=== PATIENT | female | born 1980 | race Caucasian/White ===

== ENCOUNTER → 2017-10-16 | Outpatient (CLI) | payer MEDICAID | END | disposition home or self-care (01) | LOC: U/S 09:57 | DX: O26.849 Uterine size-date discrepancy, unspecified trimester (principal); Z3A.00 Weeks of gestation of pregnancy not specified | CPT/HCPCS: 76801 ==

== ENCOUNTER 2018-05-12 11:15 | Inpatient (IN) | payer OTHER ==
[2018-05-12] MEDS ORDERED: METHYLERGONOVINE 0.2 MG INJ IM ×2 (12:00→23:00)
[2018-05-12] MEDS ORDERED: CEFAZOLIN 2 GM/50 ML (PMX) 50 ML IVPB (12:00)
[2018-05-12] MEDS ORDERED: MISOPROSTOL 200 MCG TAB PR ×2 (12:00→23:00)
[2018-05-12] MEDS ORDERED: OXYTOCIN 30 UNITS/LR 500 ML IV ×3 (12:00→23:00)
[2018-05-12] MEDS ORDERED: CARBOPROST 250 MCG INJ IM ×2 (12:00→23:00)
[2018-05-12 12:09] LABS: ADD MAN DIFF? NO
[2018-05-12 12:18] LABS: WHITE BLOOD COUNT 7.8 10^3/ul (4.8-10.8)
[2018-05-12 12:18] LABS: BASOPHILS % 0.1 % (0.0-2.0); EOSINOPHILS # 0.1 10^3/ul (0.0-0.5); EOSINOPHILS % 0.6 % (0.0-7.0); HEMATOCRIT 34.9 % (37.0-47.0); HEMOGLOBIN 11.7 g/dl (12.0-16.0); LYMPHOCYTES # 1.4 10^3/ul (0.8-2.9); LYMPHOCYTES % 17.2 % (15.0-51.0); MEAN CORPUSCULAR HGB CONC 33.5 g/dl (32.0-37.0); MEAN CORPUSCULAR VOLUME 92.3 fl (82.0-101.0); MEAN PLATELET VOLUME 11.1 fl (7.4-10.4); MONOCYTE # 0.6 10^3/ul (0.3-0.9); MONOCYTES % 7.1 % (0.0-11.0); NEUTROPHIL # 5.8 10^3/ul (1.6-7.5); NEUTROPHILS % 74.4 % (39.0-77.0); PLATELET COUNT 205 10^3/UL (140-415); RED BLOOD COUNT 3.78 10^6/ul (4.20-5.40); RED CELL DISTRIBUTION WIDTH 14.3 % (11.5-14.5)
[2018-05-12 12:39] LABS: INR 0.97
[2018-05-12 12:40] LABS: PARTIAL THROMBOPLASTIN TIME 26.9 Sec (23.0-35.0)
[2018-05-12 13:09] LABS: HEPATITIS B SURFACE ANTIGEN NEGATIVE (NEGATIVE)
[2018-05-12] MEDS ORDERED: ONDANSETRON 4 MG INJ IV ×2 (14:30)
[2018-05-12] MEDS ORDERED: NALOXONE (0.4 MG/ML) INJ IV (14:30)
[2018-05-12] MEDS ORDERED: HYDROmorphONE 0.5 MG/0.5 ML SYG IV ×2 (14:30)
[2018-05-12] MEDS ORDERED: ZOLPIDEM 5 MG TAB PO (14:30)
[2018-05-12] MEDS ORDERED: KETOROLAC 30 MG INJ IV (14:30)
[2018-05-12] MEDS ORDERED: DIPHENHYDRAMINE 50 MG INJ IV ×2 (14:30)
[2018-05-12] MEDS ORDERED: FENTAnyl 50 MCG/ML VIAL IV ×2 (14:30)
[2018-05-12] MEDS ORDERED: HYDROmorphONE 1 MG/5 ML IV SYRINGE IV ×3 (14:30)
[2018-05-12] MEDS: METOCLOPRAMIDE 10 MG INJ IV (15:26)
[2018-05-12] MEDS: FAMOTIDINE 20 MG INJ IV (15:26)
[2018-05-12] MEDS: LACTATED RINGER'S 1,000 ML IV ×2 (15:26→23:30)
[2018-05-12] MEDS: ONDANSETRON 4 MG INJ IV (15:27)
[2018-05-12] MEDS ORDERED: morphine SULFATE/PF (10 MG/10 ML) INJ (16:29)
[2018-05-12] MEDS ORDERED: OXYTOCIN 10 UNIT INJ (16:31)
[2018-05-12] MEDS ORDERED: EPINEPHrine 1 MG INJ (16:32)
[2018-05-12 19:25] LABS: RAPID PLASMA REAGIN NONREACTIVE (NR)
[2018-05-12] MEDS: KETOROLAC 30 MG INJ IV (20:00)
[2018-05-12] MEDS: AZITHROMYCIN 500MG/NS (PMX) 250 ML IVPB (20:49)
[2018-05-12] MEDS ORDERED: NA PHOSPHATE/BIPHOS 133 ML ENEMA PR (23:00)
[2018-05-12] MEDS: IBUPROFEN 800 MG TAB PO (23:00)
[2018-05-12] MEDS ORDERED: HYDROCODONE/APAP (5/325) TAB PO (23:00)
[2018-05-12] MEDS: SENNA/DOCUSATE NA (8.6MG/50MG) TAB PO (23:00)
[2018-05-12] MEDS: LANOLIN HPA 1 PKT TOP (23:29)
[2018-05-13] MEDS: CEFAZOLIN 2 GM/50 ML (PMX) 50 ML IVPB ×3 (02:29→16:44)
[2018-05-13] MEDS: CLINDAMYCIN 300 MG CAP PO ×4 (05:36→18:18)
[2018-05-13] MEDS: KETOROLAC 30 MG INJ IV (05:42)
[2018-05-13] MEDS: IBUPROFEN 800 MG TAB PO ×3 (06:00→21:36)
[2018-05-13] MEDS: LACTATED RINGER'S 1,000 ML IV ×2 (08:08→16:00)
[2018-05-13 08:20] LABS: ADD MAN DIFF? NO
[2018-05-13 08:25] LABS: WHITE BLOOD COUNT 9.7 10^3/ul (4.8-10.8)
[2018-05-13 08:25] LABS: BASOPHILS % 0.2 % (0.0-2.0); EOSINOPHILS % 0.3 % (0.0-7.0); HEMATOCRIT 32.1 % (37.0-47.0); HEMOGLOBIN 10.6 g/dl (12.0-16.0); LYMPHOCYTES # 1.3 10^3/ul (0.8-2.9); LYMPHOCYTES % 13.1 % (15.0-51.0); MEAN CORPUSCULAR HEMOGLOBIN 30.8 pg (29.0-33.0); MEAN CORPUSCULAR VOLUME 93.3 fl (82.0-101.0); MONOCYTE # 0.7 10^3/ul (0.3-0.9); MONOCYTES % 6.8 % (0.0-11.0); NEUTROPHIL # 7.7 10^3/ul (1.6-7.5); NEUTROPHILS % 79.3 % (39.0-77.0); PLATELET COUNT 168 10^3/UL (140-415); RED BLOOD COUNT 3.44 10^6/ul (4.20-5.40); RED CELL DISTRIBUTION WIDTH 14.3 % (11.5-14.5)
[2018-05-13] MEDS: SENNA/DOCUSATE NA (8.6MG/50MG) TAB PO ×2 (08:29→21:36)
[2018-05-13] MEDS: BISACODYL 10 MG SUPP PR (16:44)
[2018-05-13] MEDS: OXYCODONE/ACETAMINOPHEN (5/325) TAB PO (16:52)
[2018-05-14] MEDS: CLINDAMYCIN 300 MG CAP PO ×4 (00:25→17:38)
[2018-05-14] MEDS: IBUPROFEN 800 MG TAB PO ×3 (05:30→22:14)
[2018-05-14] MEDS: SENNA/DOCUSATE NA (8.6MG/50MG) TAB PO ×2 (09:00→21:00)
[2018-05-14] MEDS: OXYCODONE/ACETAMINOPHEN (5/325) TAB PO ×2 (10:17→20:49)
[2018-05-14] MEDS ORDERED: ACETAMINOPHEN 325 MG TAB PO (15:00)
[2018-05-15] MEDS: CLINDAMYCIN 300 MG CAP PO ×3 (01:01→12:47)
[2018-05-15] MEDS: IBUPROFEN 800 MG TAB PO ×2 (05:40→14:00)
[2018-05-15] MEDS: DIPHTH/TET/ACEL PERTUSS (ADULT) 0.5 ML VIAL IM* (09:00)
[2018-05-15] MEDS: MEASLES,MUMPS,RUBELLA VACCINE INJ SC* (09:00)
[2018-05-15] MEDS: SENNA/DOCUSATE NA (8.6MG/50MG) TAB PO (09:57)
== END 2018-05-15 16:05 | disposition home or self-care (01) | DRG 785 ==
LOC: L-D 11:15 → PP1 22:27
PROVIDERS: Obstetrics & Gynecology
PROC: 10D00Z1 Extraction of Products of Conception, Low, Open Approach (ICD-10-PCS; principal; 2018-05-12 14:00)
PROC: 0UL70ZZ Occlusion of Bilateral Fallopian Tubes, Open Approach (ICD-10-PCS; 2018-05-12 14:00)
DX: O65.5 Obstructed labor due to abnormality of maternal pelvic organs (principal); O34.211 Maternal care for low transverse scar from previous cesarean delivery; Z3A.39 39 weeks gestation of pregnancy; Z37.0 Single live birth; Z30.2 Encounter for sterilization
CPT/HCPCS: 85025; 85610; 85730; 86592; 86850; 86900; 86901; 87340; 88302; 99464